=== PATIENT | female | born 1990 | race Caucasian/White ===

== ENCOUNTER 2017-02-26 12:36 | Emergency (ER) | payer MEDICAID, OTHER, SELFPAY ==
[~2017-02-26] VITALS: Ht 149.9 cm; Wt 56.2 kg
[2017-02-26 14:22] LABS: HEMOGLOBIN 15.1 g/dL (11.7-16.4); WHITE BLOOD COUNT 8.2 x10^3/uL (3.4-10)
[2017-02-26 14:31] LABS: BLOOD UREA NITROGEN 9 mg/dL (7-18)
[2017-02-26] MEDS ORDERED: AZITHROMYCIN 500 MG TABLET ONE (16:24)
[2017-02-26] MEDS ORDERED: CEFTRIAXONE 250 MG ONE (16:24)
[2017-02-26] MEDS ORDERED: CEFTRIAXONE 250 MG IM ONE (16:30)
[2017-02-26] MEDS ORDERED: AZITHROMYCIN 500 MG TABLET PO ONE (16:30)
[2017-02-26 16:53] VITALS: BP 146/95
== END 2017-02-26 16:55 | disposition home or self-care (01) ==
LOC: ED 16:48
DX: N89.8 Other specified noninflammatory disorders of vagina (principal)
CPT/HCPCS: 36415; 80048; 81001; 82040; 84703; 85025; 87086; 87210; 87491; 87591; 87808; 96372; 99284; J0696

== ENCOUNTER 2018-05-01 08:36 | Emergency (ER) | payer MEDICAID ==
[~2018-05-01] VITALS: Ht 149.9 cm; Wt 60.4 kg
[2018-05-01 08:39] VITALS: BP 112/76
--- NOTE | 2018-05-01 09:23 | NUR ---
Patient given discharge instructions and they have confirmed that they understand the instructions. Patient ambulatory with steady gait.
== END 2018-05-01 09:24 | disposition home or self-care (01) ==
LOC: ED 09:15
DX: K02.9 Dental caries, unspecified (principal)
CPT/HCPCS: 99283

== ENCOUNTER 2018-11-16 12:44 | Emergency (ER) | payer MEDICAID ==
[~2018-11-16] VITALS: Ht 149.9 cm; Wt 54.4 kg
[2018-11-16 13:28] VITALS: BP 97/56
--- NOTE | 2018-11-16 13:28 | NUR ---
FIRST CONTACT WITH PT. PT STATES "I THINK I HAVE SYMPTOMS OF UTI 2 WEEKS AGO, SWOLLEN AFTER SEX, BURNED WHEN I PEE, LAST A COUPLE DAYS, THEN FINE, BUT NOW HAVING WHITE CLUMPY DISCHARGE AND CRAMPING. PEEING A LOT ESPECIALLY AT NIGHT." PT'S AOX4. RESPS EVEN AND UNLABORED. DENIES N/V/D AT THIS TIME. BP/SPO2 MONITORS IN PLACE. CALL LIGHT WITHIN REACH. PA AT BEDSIDE TO EVALUATE AT THIS TIME.
[2018-11-16] MEDS ORDERED: AZITHROMYCIN 500 MG TABLET PO ONE (13:30)
[2018-11-16] MEDS ORDERED: CEFTRIAXONE 250 MG IM ONE (13:30)
[2018-11-16] MEDS ORDERED: CEFTRIAXONE 250 MG ONE (13:32)
[2018-11-16] MEDS ORDERED: AZITHROMYCIN 250 MG TABLET ONE (13:32)
--- NOTE | 2018-11-16 13:40 | NUR ---
PT MEDICATED PER EMAR. PT TOLERATED WELL.
--- NOTE | 2018-11-16 13:42 | NUR ---
PT AMB TO BR AND BACK TO ROOM WITH STEADY GAIT. UA SENT.
[2018-11-16 13:59] LABS: HCG UR SG 1.022 (1.003-1.030)
[2018-11-16 14:00] LABS: CULTURE INDICATED? YES; MICROSCOPIC INDICATED
--- NOTE | 2018-11-16 14:06 | NUR ---
pelvic exam is done at bedside. pt tolerated well. this rn walked to lab.
[2018-11-16 14:12] LABS: CLUE CELLS PRESENT (NONE SEEN); WET PREP WBCS MANY (FEW)
--- NOTE | 2018-11-16 15:06 | NUR ---
Patient given discharge instructions and they have confirmed that they understand the instructions. Patient ambulatory with steady gait.
== END 2018-11-16 15:06 | disposition home or self-care (01) ==
LOC: ED 14:27
DX: N76.0 Acute vaginitis (principal); B96.89 Other specified bacterial agents as the cause of diseases classified elsewhere; N30.00 Acute cystitis without hematuria
CPT/HCPCS: 81001; 81025; 87086; 87210; 87491; 87591; 87808; 96372; 99283; J0696

== ENCOUNTER 2019-01-07 11:49 | Emergency (ER) | payer MEDICAID ==
[~2019-01-07] VITALS: Ht 149.9 cm; Wt 55.1 kg
[2019-01-07 11:54] VITALS: BP 101/71
--- NOTE | 2019-01-07 12:46 | NUR ---
WET PREP COLLECTED/WALKED TO LAB. DR WARNER IN TO SEE PT.
[2019-01-07 12:53] LABS: CLUE CELLS NONE SEEN (NONE SEEN); WET PREP WBCS FEW (FEW)
[2019-01-07] MEDS ORDERED: NEOSPORIN OINT. PKT 1 PACKET ONE (13:13)
== END 2019-01-07 13:27 | disposition home or self-care (01) ==
LOC: ED 12:18
DX: N76.2 Acute vulvitis (principal); F17.200 Nicotine dependence, unspecified, uncomplicated
CPT/HCPCS: 87210; 87808; 99283

== ENCOUNTER 2019-11-06 21:35 | Emergency (ER) | payer MEDICAID, OTHER ==
[~2019-11-06] VITALS: Ht 149.9 cm; Wt 55.7 kg
--- NOTE | 2019-11-06 21:51 | NUR ---
PT STATES HAVING RIGHT SIDED DENTAL PAIN X 3 DAYS. PT HAS FILLING IN MOLARS ON RIGHT SIDE, DENIES MEDICAL HISTORY. RIGHT SIDE OF FACE IS SLIGHTLY SWOLLEN. PT STATES 10/10 PAIN. S/O AT BEDSIDE. AWAITING ERP ASSESSMENT
[2019-11-06] MEDS ORDERED: BUPIVACAINE 0.25% ONE (22:53)
[2019-11-06] MEDS ORDERED: LIDOCAINE-MPF 1%, 2ML ONE (22:54)
[2019-11-06] MEDS ORDERED: BUPIVACAINE 0.25% INFIL ONE (23:00)
[2019-11-06] MEDS ORDERED: LIDOCAINE 1%, 10ML INFIL ONE (23:00)
[2019-11-06 23:31] VITALS: BP 111/74
== END 2019-11-06 23:55 | disposition home or self-care (01) ==
LOC: ED 23:10
DX: K02.9 Dental caries, unspecified (principal); F17.210 Nicotine dependence, cigarettes, uncomplicated; Z72.9 Problem related to lifestyle, unspecified; R51 Headache
CPT/HCPCS: 64400; 99284; 99406